=== PATIENT | male | born 1990 | race Caucasian/White ===

== ENCOUNTER 2017-04-03 09:40 | Emergency (ER) | payer BC ==
[~2017-04-03] VITALS: Ht 180.3 cm; Wt 82.1 kg
[~2017-04-03 09:40] MED LIST: BENTYL20 MG PO; PROBIOTIC1 EAC7 PO; ZOFRAN4 MG PO
[2017-04-03 10:25] LABS: MCH 28.9 PG (29.0-34.0); MCHC 35.3 G/DL (30.0-36.0); MCV 81.7 FL (86-99); MEAN PLAT.VOLUME 11.9 uM^3 (9.0-12.4); PLATELET COUNT 154 K/uL (156-360); RBC DIS.WIDTH-CV 11.9 % (11.8-14.6); RBC DIS.WIDTH-SD 35.8 % (39-53); RED BLOOD COUNT 5.51 M/uL (4.00-5.50); WHITE BLOOD COUNT 4.4 K/uL (4.1-10.2)
[2017-04-03 10:36] LABS: CHLORIDE 104 mEq/L (99-109); POTASSIUM 4.1 mEq/L (3.7-5.4); SODIUM 138 mEq/L (136-147)
[2017-04-03 10:37] LABS: AMYLASE 67 IU/L (1-118)
[2017-04-03 10:39] LABS: GLUCOSE 92 mg/dL (70-99)
[2017-04-03 10:40] LABS: ANION GAP 4 MEQ/L (2-14)
[2017-04-03 10:41] LABS: TOTAL BILIRUBIN 0.6 mg/dL (0.0-1.0)
[2017-04-03 10:42] LABS: ALKALINE PHOSPHATASE 50 IU/L (3-129); GFR ESTIMATE (CALCULATED) > 59 mL/min/ (58.99-99999)
[2017-04-03 10:43] LABS: UREA NITROGEN (BUN) 13 mg/dL (9-23)
[2017-04-03 10:46] LABS: LIPASE 20 U/L (1.0-51.0)
[2017-04-03 13:24] VITALS: BP 110/80
== END 2017-04-03 13:25 | disposition home or self-care (01) ==
LOC: EME 09:40
PROVIDERS: Nurse Practitioner Family
DX: R10.9 Unspecified abdominal pain (principal); R11.0 Nausea; R30.0 Dysuria; K58.9 Irritable bowel syndrome, unspecified; Z87.820 Personal history of traumatic brain injury; Z88.0 Allergy status to penicillin
CPT/HCPCS: 74177; 80053; 81003; 82150; 83690; 85027; 99281; 99283; J7030